=== PATIENT | female | born 1940 | race Caucasian/White ===

== ENCOUNTER 2022-04-23 17:55 | Inpatient (IN) | payer MEDICARE ==
[2022-04-23 18:29] LABS: #Basophils 0.1 10x3/uL (0.0-0.2); #Eosinphils 0.4 10x3/uL (0.0-0.5); #Monocytes 1.3 10x3/uL (0.0-1.1); #Neutrophils 8.7 10x3/uL (1.5-8.4); %Basophils 0.7 % (0.0-2.0); %Lymphocytes 15.9 % (18.0-47.0); %Monocytes 10.4 % (0.0-10.0); %Neutrophils 69.5 % (40.0-75.0); Hemoglobin 13.5 g/dL (12.0-15.5); Mean Corpuscular HGB CONC 34.3 g/dL (32.0-36.0); Mean Corpuscular Volume 84.7 fl (81.6-98.3); Mean Platelet Volume 9.5 fl (7.4-10.4); Platelet Count 355 10x3/uL (150-450); RBC Distribution Width 14.6 % (11.5-14.5); Red Blood Cell (RBC) Count 4.65 10x6/uL (3.90-5.03); White Blood Cell (WBC) Count 12.5 10x3/uL (3.5-10.5)
[2022-04-23 18:39] LABS: ALT (SGPT) 15 U/L (8-55); AST (SGOT) 20 U/L (5-34); Albumin 4.3 g/dL (3.4-4.8); Alkaline Phosphatase 65 U/L (40-110); Anion Gap 20 mmol/L (10-20); BUN (Urea Nitrogen) 69 mg/dL (9.8-20.1); Bilirubin, Total 0.6 mg/dL (0.2-1.2); Calc. Creatinine Clearance 0 mL/min (70-130); Carbon Dioxide 29 mmol/L (23-31); Chloride 90 mmol/L (98-107); Estimated GFR 35; Globulin 3.3 g/dL (2.4-3.5); Glucose 129 mg/dL (83-110); Protein, Total 7.6 g/dL (5.8-8.1); Sodium 136 mmol/L (136-145)
[2022-04-23 18:40] LABS: Potassium 2.7 mmol/L (3.5-5.1)
[2022-04-23] MEDS ORDERED: Potassium Chloride 20 MEQ TAB ONE (18:54)
[2022-04-23 21:19] LABS: SARS-CoV-2 NAA Rapid Test Not Detected (NotDetected)
[2022-04-23] MEDS ORDERED: Guaifenesin DM 100-10/5 ML UDCUP PO PRN (21:25)
[2022-04-23] MEDS ORDERED: Ondansetron PF 4 MG/2 ML Vial IVP PRN (21:25)
[2022-04-23] MEDS ORDERED: Calcium Carbonate 500 MG ChewTAB PO PRN (21:25)
[2022-04-23] MEDS ORDERED: Bisacodyl 10 MG SUPP PR PRN (21:25)
[2022-04-23] MEDS ORDERED: Senokot S 8.6-50 MG TAB PO PRN (21:25)
[2022-04-23] MEDS ORDERED: Acetaminophen 325 MG TAB PO PRN (21:25)
[2022-04-23] MEDS ORDERED: Lactated Ringer's 500 ML IV SCH (21:30)
[2022-04-23 23:05] VITALS: BMI 24.0
[2022-04-23] MEDS ORDERED: Apixaban 5 MG TAB PO SCH (23:15)
[2022-04-23] MEDS ORDERED: Mineral Oil ENEMA PR SCH (23:15)
[2022-04-23] MEDS ORDERED: Potassium Chloride 20 MEQ in Premix Bag 1 BAG IVPB SCH (23:15)
[2022-04-23] MEDS: Lactated Ringer's 1,000 ML IV SCH (23:25)
[2022-04-24 01:05] LABS: Bilirubin Neg (Negative); Blood, Urine 150 (Negative); Clarity Cloudy (Clear); Glucose, Urine (Dipstick) Normal (Negative); Ketone, Urine Negative (Negative); Leukocyte 500 (Negative); Nitrite Negative (Negative); Protein, Urine (Dipstick) 30 mg/dl (Neg-Trace); Urobilinogen Normal mg/dL (Less than 2)
[2022-04-24 01:37] LABS: Bacteria/HPF 4+ HPF (None Seen); Squamous Epithelial 0-3 HPF (0-3); WBC/HPF Greater than 50 HPF (0-3)
[2022-04-24] MEDS: Bisacodyl 5 MG TAB PO PRN ×2 (03:39→14:28)
[2022-04-24 04:39] LABS: #Basophils 0.1 10x3/uL (0.0-0.2); #Eosinphils 0.2 10x3/uL (0.0-0.5); #Monocytes 1.3 10x3/uL (0.0-1.1); #Neutrophils 5.9 10x3/uL (1.5-8.4); %Basophils 0.6 % (0.0-2.0); %Eosinophils 2.2 % (0.0-6.0); %Lymphocytes 23.2 % (18.0-47.0); %Monocytes 13.1 % (0.0-10.0); %Neutrophils 60.4 % (40.0-75.0); Hemoglobin 12.9 g/dL (12.0-15.5); Mean Corpuscular HGB CONC 33.8 g/dL (32.0-36.0); Mean Corpuscular Hemoglobin 29.2 pg (27.0-33.0); Mean Corpuscular Volume 86.4 fl (81.6-98.3); Mean Platelet Volume 9.4 fl (7.4-10.4); Platelet Count 321 10x3/uL (150-450); RBC Distribution Width 14.7 % (11.5-14.5); Red Blood Cell (RBC) Count 4.42 10x6/uL (3.90-5.03); White Blood Cell (WBC) Count 9.8 10x3/uL (3.5-10.5)
[2022-04-24 04:42] LABS: Anion Gap 16 mmol/L (10-20); BUN (Urea Nitrogen) 64 mg/dL (9.8-20.1); CK (CPK) 26 U/L (29-168); Calc. Creatinine Clearance 31 mL/min (70-130); Carbon Dioxide 31 mmol/L (23-31); Chloride 93 mmol/L (98-107); Estimated GFR 43; Glucose 82 mg/dL (83-110); Magnesium 2.1 mg/dL (1.6-2.6); Potassium 3.2 mmol/L (3.5-5.1); Sodium 137 mmol/L (136-145)
[2022-04-24] MEDS ORDERED: Apixaban 2.5 MG TAB PO SCH (09:00)
[2022-04-24] MEDS ORDERED: Mineral Oil ENEMA PR SCH (09:00)
[2022-04-24] MEDS ORDERED: Potassium Chloride 20 MEQ TAB PO SCH (10:00)
[2022-04-24] MEDS: Famotidine 20 MG TAB PO SCH (10:35)
[2022-04-24] MEDS: Sotalol HCl 80 MG TAB PO SCH ×2 (10:35→21:54)
[2022-04-24] MEDS: Apixaban 5 MG TAB PO SCH ×2 (10:35→21:54)
[2022-04-24] MEDS: Senokot S 8.6-50 MG TAB PO SCH ×2 (10:37→21:55)
[2022-04-24] MEDS: Polyethylene Glycol 3350 17 GM Packet PO SCH (10:38)
[2022-04-24] MEDS: Lactated Ringer's 1,000 ML IV SCH ×2 (10:38→18:08)
[2022-04-24] MEDS: cefTRIAXone\\ROCEPHIN 1 GM in Sodium Chloride 0.9% 100 ML IVPB SCH (10:41)
[2022-04-24] MEDS: Mineral Oil ENEMA PR SCH ×2 (18:33→18:54)
[2022-04-24] MEDS ORDERED: Atorvastatin Calcium 10 MG TAB PO SCH (21:00)
[2022-04-25] MEDS: Lactated Ringer's 1,000 ML IV SCH (06:23)
[2022-04-25] MEDS ORDERED: cefTRIAXone\\ROCEPHIN 1 GM VIAL ONE (09:12)
[2022-04-25] MEDS: Sotalol HCl 80 MG TAB PO SCH (09:14)
[2022-04-25] MEDS: Senokot S 8.6-50 MG TAB PO SCH (09:15)
[2022-04-25] MEDS: Apixaban 5 MG TAB PO SCH (09:15)
[2022-04-25] MEDS: Famotidine 20 MG TAB PO SCH (09:15)
[2022-04-25] MEDS: cefTRIAXone\\ROCEPHIN 1 GM in Sodium Chloride 0.9% 100 ML IVPB SCH (09:17)
[2022-04-25] MEDS: Polyethylene Glycol 3350 17 GM Packet PO SCH (09:17)
[2022-04-25 09:20] LABS: #Basophils 0.1 10x3/uL (0.0-0.2); #Eosinphils 0.2 10x3/uL (0.0-0.5); #Monocytes 0.7 10x3/uL (0.0-1.1); #Neutrophils 10.4 10x3/uL (1.5-8.4); %Basophils 0.5 % (0.0-2.0); %Eosinophils 1.6 % (0.0-6.0); %Lymphocytes 11.8 % (18.0-47.0); %Monocytes 5.6 % (0.0-10.0); Hemoglobin 11.7 g/dL (12.0-15.5); Mean Corpuscular HGB CONC 33.5 g/dL (32.0-36.0); Mean Corpuscular Hemoglobin 29.3 pg (27.0-33.0); Mean Corpuscular Volume 87.5 fl (81.6-98.3); Mean Platelet Volume 9.7 fl (7.4-10.4); Platelet Count 274 10x3/uL (150-450); RBC Distribution Width 15.3 % (11.5-14.5); Red Blood Cell (RBC) Count 3.99 10x6/uL (3.90-5.03)
[2022-04-25 10:02] LABS: Anion Gap 13 mmol/L (10-20); BUN (Urea Nitrogen) 33 mg/dL (9.8-20.1); Calc. Creatinine Clearance 50 mL/min (70-130); Calcium 9.4 mg/dL (7.8-10.44); Carbon Dioxide 27 mmol/L (23-31); Chloride 99 mmol/L (98-107); Estimated GFR 77; Glucose 166 mg/dL (83-110); Potassium 3.3 mmol/L (3.5-5.1); Sodium 136 mmol/L (136-145)
[2022-04-25] MEDS ORDERED: Potassium Chloride 20 MEQ TAB PO SCH (11:00)
[2022-04-25 12:20] VITALS: BP 94/44; TEMP 97.8
== END 2022-04-25 13:30 | disposition home or self-care (01) | DRG 312 ==
LOC: CSHERS 17:55 → CSHTELE 22:53
PROVIDERS: ADMIT Student in an Organized Health Care Education/Training Program; ATTEND Internal Medicine
DX: I95.1 Orthostatic hypotension (principal); N17.9 Acute kidney failure, unspecified; J90 Pleural effusion, not elsewhere classified; N39.0 Urinary tract infection, site not specified; K56.41 Fecal impaction; E86.1 Hypovolemia; E86.0 Dehydration; E87.6 Hypokalemia; K57.90 Diverticulosis of intestine, part unspecified, without perforation or abscess without bleeding; I48.0 Paroxysmal atrial fibrillation; E78.5 Hyperlipidemia, unspecified; Z20.822 Contact with and (suspected) exposure to COVID-19; Z79.01 Long term (current) use of anticoagulants; Z86.711 Personal history of pulmonary embolism; Z86.718 Personal history of other venous thrombosis and embolism; Z90.49 Acquired absence of other specified parts of digestive tract; Z98.890 Other specified postprocedural states
CPT/HCPCS: 36415; 70450; 71045; 74177; 80048; 80053; 81001; 82550; 83735; 84443; 84484; 85025; 87077; 87086; 87186; 93005; 93306; 93970; J0696; J3480; J3490; J7120; U0002

== ENCOUNTER 2022-06-15 12:22 | Emergency (ER) | payer MEDICARE ==
[~2022-06-15 12:22] MED LIST: Iopamidol 300 61% 100 ML VIAL FS ONE
[2022-06-15 13:07] LABS: #Basophils 0.1 10x3/uL (0.0-0.2); #Eosinphils 0.2 10x3/uL (0.0-0.5); #Monocytes 1.3 10x3/uL (0.0-1.1); #Neutrophils 10.7 10x3/uL (1.5-8.4); %Basophils 0.6 % (0.0-2.0); %Eosinophils 1.3 % (0.0-6.0); %Lymphocytes 8.4 % (18.0-47.0); %Monocytes 9.4 % (0.0-10.0); %Neutrophils 79.7 % (40.0-75.0); Hemoglobin 13.3 g/dL (12.0-15.5); Mean Corpuscular HGB CONC 33.8 g/dL (32.0-36.0); Mean Corpuscular Hemoglobin 29.4 pg (27.0-33.0); Mean Corpuscular Volume 86.8 fl (81.6-98.3); Mean Platelet Volume 9.8 fl (7.4-10.4); Platelet Count 409 10x3/uL (150-450); RBC Distribution Width 14.3 % (11.5-14.5); Red Blood Cell (RBC) Count 4.53 10x6/uL (3.90-5.03); White Blood Cell (WBC) Count 13.4 10x3/uL (3.5-10.5)
[2022-06-15 13:24] LABS: ALT (SGPT) 10 U/L (8-55); AST (SGOT) 14 U/L (5-34); Albumin 3.9 g/dL (3.4-4.8); Alkaline Phosphatase 90 U/L (40-110); Anion Gap 18 mmol/L (10-20); BUN (Urea Nitrogen) 46 mg/dL (9.8-20.1); Bilirubin, Total 0.7 mg/dL (0.2-1.2); Calc. Creatinine Clearance 0 mL/min (70-130); Calcium 9.3 mg/dL (7.8-10.44); Carbon Dioxide 28 mmol/L (23-31); Chloride 94 mmol/L (98-107); Estimated GFR 41; Globulin 3.6 g/dL (2.4-3.5); Glucose 147 mg/dL (83-110); Lipase 45 U/L (8-78); Magnesium 2.1 mg/dL (1.6-2.6); Protein, Total 7.5 g/dL (5.8-8.1); Sodium 137 mmol/L (136-145)
[2022-06-15 13:26] LABS: Potassium 2.9 mmol/L (3.5-5.1)
[2022-06-15 15:38] LABS: Bilirubin Neg (Negative); Blood, Urine 150 (Negative); Clarity Cloudy (Clear); Glucose, Urine (Dipstick) Normal (Negative); Ketone, Urine Negative (Negative); Leukocyte 500 (Negative); Nitrite Negative (Negative); Protein, Urine (Dipstick) 100 mg/dl (Neg-Trace); Urobilinogen Normal mg/dL (Less than 2); pH, Urine 6.5 (5.0-9.0)
[2022-06-15 15:45] LABS: Bacteria/HPF 1+ HPF (None Seen); Squamous Epithelial 0-3 HPF (0-3); WBC/HPF Greater Than 50 HPF (0-3)
== END 2022-06-15 19:16 | disposition home or self-care (01) ==
LOC: CSHERS 12:22
DX: K56.41 Fecal impaction (principal)
CPT/HCPCS: 36415; 74177; 80053; 81003; 81015; 83605; 83690; 83735; 84443; 84484; 85025; 93005; Q9967

== ENCOUNTER 2022-11-14 09:10 | Outpatient (CLI) | payer MEDICARE ==
[~2022-11-14 09:10] MED LIST changes: -Iopamidol 300 61% 100 ML VIAL FS ONE; +Magnevist 469MG/ML 20 ML VIAL ONE
== END 2022-11-14 09:11 | disposition home or self-care (01) ==
LOC: CSHMRI 09:10
PROVIDERS: ATTEND Neurological Surgery
DX: M54.6 Pain in thoracic spine (principal); G95.9 Disease of spinal cord, unspecified; Z98.890 Other specified postprocedural states; M47.816 Spondylosis without myelopathy or radiculopathy, lumbar region; K59.39 Other megacolon
CPT/HCPCS: 72157; 72158; A9579

== ENCOUNTER 2024-01-21 15:15 | Emergency (ER) | payer MEDICARE | END 2024-01-21 20:34 | disposition home or self-care (01) | LOC: CSHERS 15:15 | DX: L89.159 Pressure ulcer of sacral region, unspecified stage (principal); S80.12XA Contusion of left lower leg, initial encounter; X58.XXXA Exposure to other specified factors, initial encounter | CPT/HCPCS: 36416; 80053; 82550; 83605; 85025; 86140; 93005; 93010; 99283 ==

== ENCOUNTER 2024-02-09 02:03 | Emergency (ER) | payer MEDICARE ==
[2024-02-09 03:20] LABS: #Basophils 0.12 10x3/uL (0.0-0.2); #Eosinphils 0.48 10x3/uL (0.0-0.5); #Monocytes 0.85 10x3/uL (0.0-1.1); #Neutrophils 3.36 10x3/uL (1.5-8.4); %Basophils 1.8 % (0.0-2.0); %Eosinophils 7.2 % (0.0-6.0); %Lymphocytes 26.6 % (18.0-47.0); %Monocytes 12.8 % (0.0-10.0); %Neutrophils 50.7 % (40.0-75.0); Hematocrit 35.2 % (34.9-44.5); Hemoglobin 11.4 g/dL (12.0-15.5); Mean Corpuscular HGB CONC 32.3 g/dL (32.0-36.0); Mean Corpuscular Hemoglobin 30.6 pg (27.0-33.0); Mean Corpuscular Volume 94.9 fl (81.6-98.3); Mean Platelet Volume 9.9 fl (7.4-10.4); Platelet Count 293 10x3/uL (150-450); RBC Distribution Width 15.5 % (11.5-14.5); Red Blood Cell (RBC) Count 3.69 10x6/uL (3.90-5.03); White Blood Cell (WBC) Count 6.6 10x3/uL (3.5-10.5)
[2024-02-09 03:26] LABS: ALT (SGPT) 15 U/L (8-55); AST (SGOT) 38 U/L (5-34); Albumin 2.6 g/dL (3.4-4.8); Alkaline Phosphatase 98 U/L (40-110); Anion Gap 13 mmol/L (10-20); BUN (Urea Nitrogen) 17 mg/dL (9.8-20.1); Bilirubin, Total 0.5 mg/dL (0.2-1.2); Calc. Creatinine Clearance 0 mL/min (70-130); Calcium 8.8 mg/dL (7.8-10.44); Carbon Dioxide 28 mmol/L (23-31); Chloride 106 mmol/L (98-107); Estimated GFR 86; Globulin 3.3 g/dL (2.4-3.5); Glucose 88 mg/dL (83-110); Potassium 3.4 mmol/L (3.5-5.1); Protein, Total 5.9 g/dL (5.8-8.1); Sodium 144 mmol/L (136-145)
[2024-02-09 03:41] LABS: Bilirubin Neg (Negative); Blood, Urine 25 (Negative); Clarity Clear (Clear); Glucose, Urine (Dipstick) Normal (Negative); Ketone, Urine 15 mg/dL (Negative); Leukocyte 25 (Negative); Nitrite Negative (Negative); Protein, Urine (Dipstick) 30 mg/dl (Neg-Trace); Specific Gravity, Urine 1.015 (1.005-1.030); Urobilinogen Normal mg/dL (Less than 2)
[2024-02-09 03:49] LABS: Bacteria/HPF None Seen HPF (None Seen); CAUTI Indications for Culture Pelvic or flank pain; RBC/HPF 0-3 HPF (0-3); Squamous Epithelial 0-3 HPF (0-3); Urine Culture Reflex No No; WBC/HPF 0-3 HPF (0-3)
== END 2024-02-09 06:05 | disposition home or self-care (01) ==
LOC: CSHERS 02:03
DX: K62.89 Other specified diseases of anus and rectum (principal); E03.9 Hypothyroidism, unspecified; I48.91 Unspecified atrial fibrillation; E78.5 Hyperlipidemia, unspecified; Z79.01 Long term (current) use of anticoagulants; Z79.890 Hormone replacement therapy; Z79.899 Other long term (current) drug therapy
CPT/HCPCS: 51701; 74177; 80053; 81001; 83605; 85025; 93005